=== PATIENT | male | born 1930 | race Caucasian/White ===

== ENCOUNTER 2022-01-31 14:37 | Inpatient (IN) | payer OTHER, BC ==
[2022-01-31 15:29] VITALS: BMI 20.6
[2022-01-31 17:15] LABS: BASO % 0.4 % (0-2.0); EOS % 0.5 % (0-4.5); HEMATOCRIT 31.7 % (35.4-49); HEMOGLOBIN 10.6 GM/dL (11.7-16.9); LYMPH % 4.8 % (8-40); MCH 31.5 pg (25.7-33.7); MCHC 33.6 g/dl (32.0-35.9); MEAN CELL VOLUME 93.9 fl (80-96); MEAN PLT VOLUME 7.3 fl (7.5-11.1); MONO % 11.2 % (3.8-10.2); NEUT % 83.1 % (42.8-82.8); PLATELET COUNT 316 10^3/uL (134-434); RBC 3.38 M/mm3 (4.00-5.60); RDW 14.6 % (11.9-15.9); WHITE BLOOD COUNT 7.7 K/mm3 (4.0-10.0)
[2022-01-31 17:37] LABS: CALCIUM 7.6 mg/dL (8.5-10.1)
[2022-01-31 17:38] LABS: ALBUMIN 1.5 g/dl (3.4-5.0); BLOOD UREA NITROGEN 21.2 mg/dL (7-18)
[2022-01-31 17:39] LABS: ACTIVATED PTT 27.8 SECONDS (25.2-36.5); INR 1.13 (0.83-1.09)
[2022-01-31 17:41] LABS: CREATININE 0.8 mg/dL (0.55-1.3)
[2022-01-31 17:42] LABS: BILIRUBIN,TOTAL 0.6 mg/dL (0.2-1); TOT PROT 3.9 g/dl (6.4-8.2)
[2022-01-31] MEDS ORDERED: FUROSEMIDE 40 MG/4 ML INJECTABLE VIAL IVPUSH ONE (17:46)
[2022-01-31] MEDS ORDERED: FUROSEMIDE 40 MG/4 ML INJECTABLE VIAL ONE (17:55)
[2022-01-31 19:57] LABS: EPI CELLS 23 /uL (0-25.1); HYALINE CASTS 3 /uL (0-3.1); URINE APPEARANCE CLEAR; URINE BACTERIA 7 /uL (0-1359); URINE BILIRUBIN 1+ (NEGATIVE); URINE COLOR DK YELLOW; URINE GLUCOSE (UA) NEGATIVE (NEGATIVE); URINE KETONE TRACE (NEGATIVE); URINE LEUK ESTERASE NEGATIVE (NEGATIVE); URINE NITRITE NEGATIVE (NEGATIVE); URINE PROTEIN 1+ (NEGATIVE); URINE RBC 17 /uL (0-23.9); URINE WBC 6 /uL (0-25.8)
[2022-01-31 22:57] LABS: URINE CRYSTALS MANY /hpf
[2022-02-01 10:05] LABS: CALCIUM 7.8 mg/dL (8.5-10.1)
[2022-02-01 10:06] LABS: ALBUMIN 1.6 g/dl (3.4-5.0); BLOOD UREA NITROGEN 17.7 mg/dL (7-18)
[2022-02-01 10:09] LABS: CREATININE 0.7 mg/dL (0.55-1.3)
[2022-02-01 10:11] LABS: BILIRUBIN,TOTAL 0.8 mg/dL (0.2-1); TOT PROT 4.2 g/dl (6.4-8.2)
[2022-02-01 10:36] LABS: BASO % 0.5 % (0-2.0); EOS % 0.8 % (0-4.5); HEMATOCRIT 33.1 % (35.4-49); HEMOGLOBIN 11.2 GM/dL (11.7-16.9); LYMPH % 4.6 % (8-40); MCH 31.6 pg (25.7-33.7); MCHC 33.9 g/dl (32.0-35.9); MEAN CELL VOLUME 93.2 fl (80-96); MEAN PLT VOLUME 7.5 fl (7.5-11.1); MONO % 8.1 % (3.8-10.2); PLATELET COUNT 315 10^3/uL (134-434); RBC 3.55 M/mm3 (4.00-5.60); RDW 14.6 % (11.9-15.9); WHITE BLOOD COUNT 7.2 K/mm3 (4.0-10.0)
[2022-02-01] MEDS: ATORVASTATIN CA 20 MG TABLET (FP) PO SCH (22:44)
[2022-02-01] MEDS: HEPARIN NA (PORCINE) 5,000 UNITS/ML 1ML VIAL SQ SCH (22:44)
[2022-02-02] MEDS: FUROSEMIDE 40 MG/4 ML INJECTABLE VIAL IVPUSH SCH (09:24)
[2022-02-02] MEDS: HEPARIN NA (PORCINE) 5,000 UNITS/ML 1ML VIAL SQ SCH ×2 (09:25→22:01)
[2022-02-02] MEDS: ASPIRIN COATED 81 MG TABLET.EC PO SCH (09:25)
[2022-02-02] MEDS ORDERED: POTASSIUM CHLORIDE TABS 20 MEQ TABLET.ER (FP) PO ONE ×2 (11:45→15:00)
[2022-02-02 12:54] LABS: BASO % 0.4 % (0-2.0); EOS % 0.9 % (0-4.5); HEMATOCRIT 31.2 % (35.4-49); HEMOGLOBIN 10.6 GM/dL (11.7-16.9); LYMPH % 6.1 % (8-40); MCH 31.3 pg (25.7-33.7); MEAN CELL VOLUME 92.2 fl (80-96); MEAN PLT VOLUME 7.2 fl (7.5-11.1); MONO % 9.6 % (3.8-10.2); PLATELET COUNT 305 10^3/uL (134-434); RBC 3.38 M/mm3 (4.00-5.60); RDW 14.7 % (11.9-15.9); WHITE BLOOD COUNT 6.8 K/mm3 (4.0-10.0)
[2022-02-02 13:25] LABS: ALBUMIN 1.3 g/dl (3.4-5.0); BLOOD UREA NITROGEN 14.9 mg/dL (7-18); CALCIUM 7.3 mg/dL (8.5-10.1)
[2022-02-02 13:29] LABS: CREATININE 0.6 mg/dL (0.55-1.3)
[2022-02-02 13:30] LABS: BILIRUBIN,TOTAL 0.5 mg/dL (0.2-1); TOT PROT 3.8 g/dl (6.4-8.2)
[2022-02-02] MEDS: ATORVASTATIN CA 20 MG TABLET (FP) PO SCH (22:01)
[2022-02-03 06:47] LABS: BASO % 0.5 % (0-2.0); EOS % 1.3 % (0-4.5); HEMATOCRIT 29.5 % (35.4-49); HEMOGLOBIN 10.4 GM/dL (11.7-16.9); LYMPH % 7.6 % (8-40); MCH 32.3 pg (25.7-33.7); MCHC 35.3 g/dl (32.0-35.9); MEAN CELL VOLUME 91.7 fl (80-96); MONO % 11.6 % (3.8-10.2); PLATELET COUNT 302 10^3/uL (134-434); RBC 3.22 M/mm3 (4.00-5.60); RDW 14.5 % (11.9-15.9); WHITE BLOOD COUNT 7.1 K/mm3 (4.0-10.0)
[2022-02-03 07:02] LABS: CALCIUM 7.4 mg/dL (8.5-10.1)
[2022-02-03 07:03] LABS: ALBUMIN 1.4 g/dl (3.4-5.0); BLOOD UREA NITROGEN 14.3 mg/dL (7-18)
[2022-02-03 07:06] LABS: CREATININE 0.7 mg/dL (0.55-1.3)
[2022-02-03 07:08] LABS: BILIRUBIN,TOTAL 0.7 mg/dL (0.2-1); TOT PROT 3.8 g/dl (6.4-8.2)
[2022-02-03] MEDS: FUROSEMIDE 40 MG/4 ML INJECTABLE VIAL IVPUSH SCH (10:36)
[2022-02-03] MEDS: HEPARIN NA (PORCINE) 5,000 UNITS/ML 1ML VIAL SQ SCH ×2 (10:47→22:02)
[2022-02-03] MEDS: ASPIRIN COATED 81 MG TABLET.EC PO SCH (10:47)
[2022-02-03] MEDS: ATORVASTATIN CA 20 MG TABLET (FP) PO SCH (22:02)
[2022-02-04] MEDS: ASPIRIN COATED 81 MG TABLET.EC PO SCH (09:46)
[2022-02-04] MEDS: HEPARIN NA (PORCINE) 5,000 UNITS/ML 1ML VIAL SQ SCH ×2 (09:46→21:51)
[2022-02-04] MEDS: FUROSEMIDE 40 MG TABLET (FP) PO SCH (09:46)
[2022-02-04] MEDS: ATORVASTATIN CA 20 MG TABLET (FP) PO SCH (21:51)
[2022-02-05] MEDS: FUROSEMIDE 40 MG TABLET (FP) PO SCH (10:08)
[2022-02-05] MEDS: ASPIRIN COATED 81 MG TABLET.EC PO SCH (10:08)
[2022-02-05] MEDS: HEPARIN NA (PORCINE) 5,000 UNITS/ML 1ML VIAL SQ SCH ×2 (10:08→21:21)
[2022-02-05] MEDS: ATORVASTATIN CA 20 MG TABLET (FP) PO SCH (21:21)
[2022-02-06] MEDS: HEPARIN NA (PORCINE) 5,000 UNITS/ML 1ML VIAL SQ SCH ×2 (10:24→21:43)
[2022-02-06] MEDS: ASPIRIN COATED 81 MG TABLET.EC PO SCH (10:25)
[2022-02-06] MEDS: FUROSEMIDE 40 MG TABLET (FP) PO SCH (10:25)
[2022-02-06] MEDS: ATORVASTATIN CA 20 MG TABLET (FP) PO SCH (21:43)
[2022-02-06 23:31] VITALS: BP 135/57; PULSE 52; TEMP 98.1
== END 2022-02-06 23:20 | disposition home or self-care (01) | DRG 291 ==
LOC: JER 14:37 → JERBED 18:29 → J4S 02-01 22:14
PROVIDERS: ADMIT Specialist; ATTEND Specialist
DX: I11.0 Hypertensive heart disease with heart failure (principal); U07.1 COVID-19; J12.82 Pneumonia due to coronavirus disease 2019; I50.33 Acute on chronic diastolic (congestive) heart failure; E87.1 Hypo-osmolality and hyponatremia; U09.9 Post COVID-19 condition, unspecified; I25.119 Atherosclerotic heart disease of native coronary artery with unspecified angina pectoris; J84.10 Pulmonary fibrosis, unspecified; J45.909 Unspecified asthma, uncomplicated; F03.90 Unspecified dementia, unspecified severity, without behavioral disturbance, psychotic disturbance, mood disturbance, and anxiety; E78.5 Hyperlipidemia, unspecified; I48.0 Paroxysmal atrial fibrillation; I35.0 Nonrheumatic aortic (valve) stenosis; N40.0 Benign prostatic hyperplasia without lower urinary tract symptoms; Z95.5 Presence of coronary angioplasty implant and graft; S22.019 Unspecified fracture of first thoracic vertebra; S22.39XG Fracture of one rib, unspecified side, subsequent encounter for fracture with delayed healing; W18.39XD Other fall on same level, subsequent encounter
CPT/HCPCS: 0241U-QW; 36415; 70450-TC; 71045-TC-FY; 80053; 81003; 82436; 82533; 82550; 82570; 82607; 82962; 83930; 83935; 84133; 84300; 84443; 84484; 85025; 85610; 85730; 86850; 86900; 86901; 93005; 93010; 94761; 99285-25; J1644

== ENCOUNTER 2022-03-01 09:59 | Inpatient (IN) | payer OTHER, BC ==
[2022-03-01] MEDS ORDERED: ACETAMINOPHEN 1000 MG/100 ML BAG IVPB ONE (10:56)
[2022-03-01] MEDS ORDERED: ACETAMINOPHEN INJECTION 100 ML IVPB ONE (11:45)
[2022-03-01 12:20] LABS: EOS % 3.1 % (0-4.5); HEMATOCRIT 28.6 % (35.4-49); HEMOGLOBIN 9.6 GM/dL (11.7-16.9); LYMPH % 12.9 % (8-40); MCH 31.7 pg (25.7-33.7); MCHC 33.7 g/dl (32.0-35.9); MEAN CELL VOLUME 94.1 fl (80-96); MEAN PLT VOLUME 7.6 fl (7.5-11.1); MONO % 8.7 % (3.8-10.2); NEUT % 74.3 % (42.8-82.8); PLATELET COUNT 191 10^3/uL (134-434); RBC 3.04 M/mm3 (4.00-5.60); RDW 16.3 % (11.9-15.9); WHITE BLOOD COUNT 4.7 K/mm3 (4.0-10.0)
[2022-03-01 12:41] LABS: CALCIUM 8.2 mg/dL (8.5-10.1)
[2022-03-01 12:43] LABS: ALBUMIN 2.3 g/dl (3.4-5.0); BLOOD UREA NITROGEN 23.6 mg/dL (7-18)
[2022-03-01 12:46] LABS: CREATININE 1.2 mg/dL (0.55-1.3)
[2022-03-01 12:47] LABS: TOT PROT 4.8 g/dl (6.4-8.2)
[2022-03-01 12:48] LABS: BILIRUBIN,TOTAL 0.6 mg/dL (0.2-1)
[2022-03-01] MEDS ORDERED: morphine CARPU-JECT 2 MG/1 ML DISP.SYRIN IVPUSH ONE (14:33)
[2022-03-01] MEDS ORDERED: morphine CARPU-JECT 4 MG/1 ML DISP.SYRIN IVPUSH ONE (16:42)
[2022-03-01] MEDS ORDERED: LIDOCAINE 5% TOPICAL PATCH TP ONE (16:43)
[2022-03-01] MEDS ORDERED: morphine SULFATE 4 MG/ML VIAL ONE (17:03)
[2022-03-01] MEDS ORDERED: LIDOCAINE 5% TOPICAL PATCH ONE (17:04)
[2022-03-01 17:11] LABS: URINE APPEARANCE CLEAR; URINE BILIRUBIN NEGATIVE (NEGATIVE); URINE COLOR YELLOW; URINE GLUCOSE (UA) NEGATIVE (NEGATIVE); URINE KETONE NEGATIVE (NEGATIVE); URINE LEUK ESTERASE NEGATIVE (NEGATIVE); URINE NITRITE NEGATIVE (NEGATIVE); URINE PROTEIN NEGATIVE (NEGATIVE); URINE UROBILINOGEN 0.2 mg/dL (0.2-1.0)
[2022-03-01] MEDS ORDERED: MAG HYDROX/ALH/SMC/DPHA/LIDO 240 ML MOUTHWASH MM SCH (18:00)
[2022-03-01] MEDS: ATORVASTATIN CA 20 MG TABLET (FP) PO SCH (21:45)
[2022-03-01] MEDS: ACETAMINOPHEN 325 MG TABLET (FP) PO PRN (23:00)
[2022-03-02] MEDS ORDERED: LIDOCAINE PATCH REMOVAL MC SCH (05:00)
[2022-03-02] MEDS: FUROSEMIDE 40 MG TABLET (FP) PO SCH ×2 (05:31→14:16)
[2022-03-02] MEDS: ACETAMINOPHEN 325 MG TABLET (FP) PO PRN ×2 (05:50→21:12)
[2022-03-02] MEDS: ASPIRIN COATED 81 MG TABLET.EC PO SCH (09:41)
[2022-03-02] MEDS ORDERED: FUROSEMIDE 40 MG TABLET (FP) PO SCH (10:00)
[2022-03-02] MEDS: ATORVASTATIN CA 20 MG TABLET (FP) PO SCH (21:12)
[2022-03-03] MEDS: ACETAMINOPHEN 325 MG TABLET (FP) PO PRN (04:17)
[2022-03-03] MEDS: FUROSEMIDE 40 MG TABLET (FP) PO SCH (06:00)
[2022-03-03] MEDS: ASPIRIN COATED 81 MG TABLET.EC PO SCH (09:41)
[2022-03-03 11:04] LABS: BASO % 1.4 % (0-2.0); EOS % 8.2 % (0-4.5); HEMATOCRIT 31.6 % (35.4-49); LYMPH % 17.1 % (8-40); MCH 32.3 pg (25.7-33.7); MCHC 34.8 g/dl (32.0-35.9); MEAN CELL VOLUME 92.8 fl (80-96); MEAN PLT VOLUME 7.3 fl (7.5-11.1); MONO % 6.9 % (3.8-10.2); NEUT % 66.4 % (42.8-82.8); PLATELET COUNT 212 10^3/uL (134-434); RDW 16.2 % (11.9-15.9); WHITE BLOOD COUNT 4.4 K/mm3 (4.0-10.0)
[2022-03-03 12:03] LABS: ALBUMIN 2.4 g/dl (3.4-5.0); CALCIUM 8.2 mg/dL (8.5-10.1)
[2022-03-03 12:06] LABS: CREATININE 0.9 mg/dL (0.55-1.3)
[2022-03-03 12:08] LABS: BILIRUBIN,TOTAL 0.6 mg/dL (0.2-1); TOT PROT 4.8 g/dl (6.4-8.2)
[2022-03-03 12:14] LABS: BLOOD UREA NITROGEN 12.5 mg/dL (7-18)
[2022-03-03] MEDS: ISOSORBIDE MONONITRATE 30 MG TAB.SR.24H (FP) PO SCH (15:50)
[2022-03-03] MEDS: ATORVASTATIN CA 20 MG TABLET (FP) PO SCH (22:40)
[2022-03-04] MEDS: ACETAMINOPHEN 325 MG TABLET (FP) PO PRN (01:24)
[2022-03-04 09:11] VITALS: BP 128/50; PULSE 54; TEMP 98.5
[2022-03-04] MEDS: ASPIRIN COATED 81 MG TABLET.EC PO SCH (09:15)
[2022-03-04] MEDS: ISOSORBIDE MONONITRATE 30 MG TAB.SR.24H (FP) PO SCH (09:16)
[2022-03-04] MEDS ORDERED: LISINOPRIL 5 MG TABLET PO SCH (10:00)
[2022-03-04] MEDS ORDERED: FUROSEMIDE 20 MG TABLET (FP) PO SCH (10:00)
[2022-03-04] MEDS ORDERED: CLOPIDOGREL BISULFATE 75 MG TABLET (FP) PO SCH (10:00)
[2022-03-04 19:37] VITALS: BMI 19.5
== END 2022-03-04 13:07 | DRG 641 ==
LOC: JER 09:59 → JERBED 15:17 → J6S 20:50
PROVIDERS: ADMIT Specialist; ATTEND Specialist
DX: E87.70 Fluid overload, unspecified (principal); I50.32 Chronic diastolic (congestive) heart failure; J98.11 Atelectasis; E87.1 Hypo-osmolality and hyponatremia; I11.0 Hypertensive heart disease with heart failure; F03.90 Unspecified dementia, unspecified severity, without behavioral disturbance, psychotic disturbance, mood disturbance, and anxiety; I35.0 Nonrheumatic aortic (valve) stenosis; I25.10 Atherosclerotic heart disease of native coronary artery without angina pectoris; Z86.16 Personal history of COVID-19; E78.00 Pure hypercholesterolemia, unspecified; K59.00 Constipation, unspecified; J44.9 Chronic obstructive pulmonary disease, unspecified; K40.90 Unilateral inguinal hernia, without obstruction or gangrene, not specified as recurrent; K44.9 Diaphragmatic hernia without obstruction or gangrene
CPT/HCPCS: 36415; 71045-TC-FY; 71250-TC; 74176-TC; 80053; 81003; 82140; 82607; 83540; 83605; 83690; 84443; 84484; 85025; 87086; 93005; 93010; 93306-TC; 94010; 97116-GP; 97162-GP; 99285-25; C9803-CS; U0003; U0005

== ENCOUNTER 2022-04-01 10:49 | Observation (INO) | payer OTHER, BC ==
[2022-04-01] MEDS ORDERED: morphine CARPU-JECT 2 MG/1 ML DISP.SYRIN IVPUSH ONE (12:00)
[2022-04-01] MEDS ORDERED: ACETAMINOPHEN 1000 MG/100 ML BAG IVPB ONE (12:13)
[2022-04-01] MEDS ORDERED: ACETAMINOPHEN INJECTION 100 ML IVPB ONE (12:30)
[2022-04-01 13:54] LABS: BASO % 0.4 % (0-2.0); EOS % 3.2 % (0-4.5); HEMATOCRIT 30.1 % (35.4-49); HEMOGLOBIN 10.5 GM/dL (11.7-16.9); LYMPH % 7.3 % (8-40); MCH 32.1 pg (25.7-33.7); MCHC 34.9 g/dl (32.0-35.9); MEAN CELL VOLUME 92.1 fl (80-96); MONO % 8.3 % (3.8-10.2); NEUT % 80.8 % (42.8-82.8); PLATELET COUNT 293 10^3/uL (134-434); RBC 3.26 M/mm3 (4.00-5.60); RDW 17.1 % (11.9-15.9); WHITE BLOOD COUNT 7.3 K/mm3 (4.0-10.0)
[2022-04-01 14:01] LABS: INR 1.06 (0.83-1.09); PROTHROMBIN TIME (PATIENT) 12.2 SEC (9.7-13.0)
[2022-04-01 14:16] LABS: ALBUMIN 2.8 g/dl (3.4-5.0); BLOOD UREA NITROGEN 21.5 mg/dL (7-18); CALCIUM 8.2 mg/dL (8.5-10.1)
[2022-04-01 14:19] LABS: CREATININE 0.9 mg/dL (0.55-1.3)
[2022-04-01 14:21] LABS: BILIRUBIN,TOTAL 0.8 mg/dL (0.2-1); TOT PROT 5.6 g/dl (6.4-8.2)
[2022-04-01 15:01] LABS: URINE APPEARANCE CLEAR; URINE BILIRUBIN NEGATIVE (NEGATIVE); URINE COLOR YELLOW; URINE GLUCOSE (UA) NEGATIVE (NEGATIVE); URINE KETONE NEGATIVE (NEGATIVE); URINE LEUK ESTERASE NEGATIVE (NEGATIVE); URINE NITRITE NEGATIVE (NEGATIVE); URINE PROTEIN NEGATIVE (NEGATIVE)
[2022-04-01] MEDS ORDERED: ATORVASTATIN CA 20 MG TABLET (FP) ONE (22:54)
[2022-04-01] MEDS: ATORVASTATIN CA 20 MG TABLET (FP) PO SCH (23:03)
[2022-04-02 03:11] VITALS: BMI 16.7
[2022-04-02] MEDS ORDERED: PATIENT'S OWN MEDICATION (NON-FORMULARY) (Lidocaine Patch Removal 1 EACH Each) MC SCH (05:00)
[2022-04-02] MEDS: LISINOPRIL 5 MG TABLET PO SCH (09:52)
[2022-04-02] MEDS: AMIODARONE HCL 200 MG TABLET PO SCH (09:52)
[2022-04-02] MEDS: ASPIRIN COATED 81 MG TABLET.EC PO SCH (09:52)
[2022-04-02] MEDS: CLOPIDOGREL BISULFATE 75 MG TABLET (FP) PO SCH (09:52)
[2022-04-02] MEDS: FUROSEMIDE 20 MG TABLET (FP) PO SCH (09:52)
[2022-04-02] MEDS: ISOSORBIDE MONONITRATE 30 MG TAB.SR.24H (FP) PO SCH (09:52)
[2022-04-02] MEDS: ACETAMINOPHEN 325 MG TABLET (FP) PO PRN (10:10)
[2022-04-02] MEDS: traMADol HCL 50 MG TABLET PO PRN ×2 (15:32→22:30)
[2022-04-02 15:43] VITALS: RESP 16
[2022-04-02] MEDS: ATORVASTATIN CA 20 MG TABLET (FP) PO SCH (22:32)
[2022-04-03 08:33] VITALS: BP 141/56; PULSE 52; TEMP 98
[2022-04-03] MEDS: LISINOPRIL 5 MG TABLET PO SCH (09:13)
[2022-04-03] MEDS: AMIODARONE HCL 200 MG TABLET PO SCH (09:13)
[2022-04-03] MEDS: ISOSORBIDE MONONITRATE 30 MG TAB.SR.24H (FP) PO SCH (09:13)
[2022-04-03] MEDS: FUROSEMIDE 20 MG TABLET (FP) PO SCH (09:14)
[2022-04-03] MEDS: ASPIRIN COATED 81 MG TABLET.EC PO SCH (09:14)
[2022-04-03] MEDS: CLOPIDOGREL BISULFATE 75 MG TABLET (FP) PO SCH (09:16)
[2022-04-03] MEDS: ACETAMINOPHEN 325 MG TABLET (FP) PO PRN (10:44)
== END 2022-04-03 14:10 | disposition home health service (06) ==
LOC: JER 10:49 → JERBED 12:46 → J4W 04-02 01:39
PROVIDERS: ADMIT Internal Medicine; ATTEND Internal Medicine
PROC: 3E033NZ Introduction of Analgesics, Hypnotics, Sedatives into Peripheral Vein, Percutaneous Approach (ICD-10-PCS; principal; 2022-04-01)
PROC: 3E033NZ Introduction of Analgesics, Hypnotics, Sedatives into Peripheral Vein, Percutaneous Approach (ICD-10-PCS; 2022-04-01)
DX: I25.10 Atherosclerotic heart disease of native coronary artery without angina pectoris (principal); Z99.89 Dependence on other enabling machines and devices; C85.90 Non-Hodgkin lymphoma, unspecified, unspecified site; I11.0 Hypertensive heart disease with heart failure; I50.9 Heart failure, unspecified; R42 Dizziness and giddiness; I35.0 Nonrheumatic aortic (valve) stenosis; R01.1 Cardiac murmur, unspecified; E78.5 Hyperlipidemia, unspecified; J45.909 Unspecified asthma, uncomplicated; N40.0 Benign prostatic hyperplasia without lower urinary tract symptoms; F03.90 Unspecified dementia, unspecified severity, without behavioral disturbance, psychotic disturbance, mood disturbance, and anxiety; R26.89 Other abnormalities of gait and mobility; Z98.61 Coronary angioplasty status; Z87.891 Personal history of nicotine dependence; I48.91 Unspecified atrial fibrillation; Z86.16 Personal history of COVID-19; R55 Syncope and collapse; W18.39XA Other fall on same level, initial encounter; Y93.89 Activity, other specified; Y92.89 Other specified places as the place of occurrence of the external cause; Z91.041 Radiographic dye allergy status
CPT/HCPCS: 36415; 70450-TC; 71250-TC; 72125-TC; 72128-TC; 72131-TC; 72170-TC-FY; 72192-TC; 73502-TC-RT-FY; 80053; 81003; 82962; 84484; 85025; 85610; 85730; 86850; 86900; 86901; 87086; 93005; 93010; 96374; 96375; 97116-GP; 97162-GP; 99285-25; C9803-CS; G0378; U0003; U0005